=== PATIENT | female | born 1995 | race Caucasian/White ===

== ENCOUNTER 2017-01-16 09:23 | Inpatient (IN) ==
[2017-01-16] MEDS ORDERED: ONDANSETRON 4 MG/2 ML VIAL ONE (09:50)
[2017-01-16] MEDS ORDERED: MORPHINE 2 MG/1 ML SYRINGE ONE ×3 (09:50→10:41)
[2017-01-16] MEDS ORDERED: ONDANSETRON 4 MG/2 ML VIAL IV STA (09:55)
[2017-01-16] MEDS ORDERED: SODIUM CHLORIDE 0.9% 1,000 ML IV STA (09:55)
[2017-01-16] MEDS ORDERED: MORPHINE 2 MG/1 ML SYRINGE IV STA ×2 (09:55→10:34)
[2017-01-16 10:03] LABS: Basophils # 0.1 10*3/uL (0.0-0.2); Basophils % 0.6 % (0.0-0.8); Eosinophils # 0.1 10*3/uL (0.0-0.87); Eosinophils % 0.7 % (0.00-10.9); Hematocrit 34.6 VOL% (35.7-47.0); Hemoglobin 11.9 GM/DL (12.0-16.0); Immature Granulocytes % 0.4 %; Immature Granulocytes Absolute 0.04 #; Lymphocytes # 2.5 10*3/uL (1.4-4.0); Lymphocytes % 26.5 % (21.3-54.2); Mean Corpuscular HGB Conc 34.4 GM/DL (32-36); Mean Corpuscular Hemoglobin 27 PG (27-34); Mean Corpuscular Volume 78.5 FL (87-102); Mean Platelet Volume 9.7 FL (9.6-12.0); Monocytes # 0.5 10*3/uL (0.11-0.8); Monocytes % 5.2 % (1.7-12.7); Neutrophils # 6.2 10*3/uL (1.4-7.4); Neutrophils % 66.6 % (38.7-73.9); Platelet Count 300 T/CUMM (130-400); Red Blood Count 4.41 MC/CUMM (3.8-5.5); Red Cell Distribution Width 13.6 % (9.3-17.3); White Blood Count 9.4 T/CUMM (4-12)
[2017-01-16 10:40] LABS: Albumin 4.2 G/DL (3.4-5.0); Bilirubin,Total 0.8 MG/DL (0.2-1.0); Calcium 8.7 MG/DL (8.5-10.1); Total Protein 7.8 G/DL (6.4-8.3)
[2017-01-16 10:41] LABS: Osmolality,Calculated 275.7 MOS/KG (273-304); Potassium 3.6 MMOL/L (3.5-5.1)
--- NOTE | 2017-01-16 11:02 | Ultrasound Report ---
Exam: Ultrasound first trimester, transabdominal Clinical History: 21 years Female. Left lower quadrant pain Comparison: No relevant comparison images Technique: Real-time transabdominal obstetrical ultrasound maternal pelvis and a first trimester with image documentation Findings: Gestation: Single intrauterine gestation with visualized yolk sac. pole within an estimated age of 6 weeks 3 days heart rate is 117 bpm. Uterus/cervix: Unremarkable. No myometrial mass. Ovaries: Ovaries are within normal limits. No adnexal masses are appreciated Free fluid: There is no significant free fluid Impression: 1. Viable intrauterine gestation with estimated age of 6 weeks 3 days and expected delivery date of September 08, 2017 PROCEDURE INTERPRETED AT [facility] DEPARTMENT OF RADIOLOGY Final Report Signed by: Linda Keller MD
[2017-01-16 11:05] LABS: Apearance,Urine Slightly Hazy (Clear); Bilirubin,Urine Negative (Negative); Blood, Urine Large mg/dL (Negative); Glucose,Urine (UA) 50 mg/dL (Negative); Ketones,Urine Negative (Negative); Mucus,Urine Occasional /LPF (Occasional); Nitrite,Urine Negative (Negative); Protein,Urine Negative; RBC,Urine 858 /HPF (0-4); Squamous Epithelial Cell,Urine Occasional /HPF (0-10); Urine Color Yellow (Yellow); Urine Specific Gravity 1.021 (1.001-1.035); Urine Urobilinogen < 2.0 EU/DL (0.2-1.0); WBC,Urine 1 /HPF (0-6)
[2017-01-16] MEDS ORDERED: HYDROmorphone 2 MG/1 ML VIAL IV STA ×2 (11:31→13:23)
[2017-01-16] MEDS ORDERED: HYDROmorphone 2 MG/1 ML VIAL ONE (11:50)
--- NOTE | 2017-01-16 12:31 | Emergency Department Note ---
Megan Boone Mantricia, am scribing for, and in the presence of, Austin Garnett Jr., MD 09:45. Tamir Boone Marvin Jr., MD, personally performed the services described in this documentation, ascribed by Debbie Guzman in my presence, and it is both accurate and complete 958 . Arrival - Arrival Chief Complaint: Nausea/Vomiting/Diarrhea Stated Complaint: 7 weeks /severe pain ED Nursing Triage Note: pt ambulatory to triage with c/o having n/v with abd pain onset this am around 0730. pt last menstral cycle 11/27/2016. pt is estimated at 8wks gestation. pt has not been to obgyn yet for confirmation. Mode of Arrival: Wheelchair Limitations: No Limitations Source: Patient - History of Present Illness HPI Narrative: Pt is a 21 y/o white female arriving to ED via wheelchair with c/o N/V and left sided abdominal pain that onset 0730 this morning. Pt states that she is about 7 weeks with a LNMP of 11/27/16. She describes the pain as severe, constant, and excruciating that seems to be getting worse. Pt denies vaginal bleeding and reports that she has been spitting up flem. She denies taking any pain medications due to not being able to keep anything down. Pt denies following up with an OBGYN yet. At time if exam, pt's heart rate is 114. No other complaints were reported to ED. Onset (ago): hour(s) Consistency: constant Severity: severe Date of Last Menstrual Period: 11/27/2016 Allergies/Adverse Reactions: Allergies Allergy/AdvReac Type Severity Reaction Status Date / Time Pertussis Vaccines Allergy ANAPHYLAXIS Verified 01/16/17 09:36 Home Medications: Home Medications Medication Instructions Recorded Confirmed Type Pnv No.95/Ferrous Fum/Folic AC 1 each PO DAILY 01/16/17 01/16/17 History [ Tablet] Review of System - Review of System 12 point system: reviewed and no additional remarkable complaints except as stated - Review of System Constitutional: Absent: chills, diaphoresis, fever Respiratory: Absent: cough Cardiovascular: Absent: chest pain Gastrointestinal: Present: abdominal pain, nausea, vomiting. Absent: diarrhea Musculoskeletal: Absent: arm pain, back pain, leg pain, neck pain Medical,Surgical,& Family Hx - Social History Smoking Status: Never smoker Frequency of Alcohol Use: None Type of Drug Use: None Exam Physical Examination: General: Well-developed well-nourished, severe distress, very anxious, cannot be still, prefers to sit up and hold the pillow to her abdomen Head: Normocephalic, atraumatic. Eyes: PERRLA, EOMI. Nose: No obvious acute deformities or discharge. Mouth: No obvious acute injury. Neck: Full range of motion without obvious pain. No midline tender to palpation. Lymphatic: no significant lymphadenopathy noted. Lungs: Clear to auscultation bilaterally, normal and equal air movement bilaterally, no obvious rales or wheezing. Heart: Tachycardic Abdomen: Some left suprapubic tenderness but most is on the left side of her abdomen, left lower quadrant Skin: No obivous acute lesions noted , diaphoretic Musculoskeletal: No gross deformities. Neurological: No focal findings, cranial nerves II through XII grossly normal. Psychiatric: Anxious : Deferred Vital Signs: Vital Signs Temperature 97.6 F 01/16/17 09:50 Pulse Rate 126 H 01/16/17 09:50 Respiratory Rate 20 01/16/17 09:50 Blood Pressure 109/70 01/16/17 09:50 O2 Sat by Pulse Oximetry 98 01/16/17 09:33 Course Course Narrative: Differential diagnosis, ectopic , kidney stone, pyelonephritis, ovarian torsion - Reevaluation(s) Reevaluation #1: Patient said her nausea is better but her abdominal pain has not changed. Nurse reports the tech told her the baby appears to be normal. IUP. Report pending, if this is a case kidney stone must be high on the list as well as severe pyelonephritis Time: 10:35 Reevaluation #2: Patient still in considerable pain. External vaginal exam performed and appears to be normal. No blood. Digital exam was performed in office is closed. No right adnexal or uterine tender to palpation. No blood. Left adnexa and left side pain. Very tender to palpation. Significant amount of blood in her cath urine specimen. Only 1 white cell seen, this is consistent with a kidney stone without infection, this would fit her picture since she has a strong family of kidney stones. Except that she is tender to palpation which is slightly unusual. I am hesitant about doing a CT to prove this and patient and family agree. Time: 11:29 Reevaluation #3: Patient has received 8 mg of morphine and 1 mg of Dilaudid and is still hurting. She says her pain is better but still severe. She still does not want CT of her abdomen looking for a kidney stone. I will discuss with the hospitalist to admit for pain control and further workup. Time: 12:22 Results - Labs CBC & BMP: 01/16/17 09:51 01/16/17 09:51 Lab Results: I have reviewed the patients labs Labs: Laboratory Tests 01/16/17 01/16/17 01/16/17 09:51 09:51 09:51 Hgb 11.9 L Hct 34.6 L MCV 78.5 L Glucose 129 H Globulin 3.6 H HCG Beta Subunit 69135.0 H Laboratory Tests 01/16/17 09:51 Urine Urobilinogen < 2.0 H - Diagnostic Findings Procedure: Ultrasound: report reviewed by me, image reviewed by me (Transvaginal : 1. Viable intrauterine gestation with estimated age of 6 weeks 3 days and expected delivery date of September 08, 2017. ) Disposition Clinical Impression: Acute onset left abdominal pain, Early stage of , Vomiting Case discussed with: patient, patient's family Disposition: Still a Patient Condition: Stable Time of Disposition: 12:31
[2017-01-16] MEDS ORDERED: ACETAMINOPHEN 325 MG TABLET PO PRN ×2 (13:04)
[2017-01-16] MEDS ORDERED: oxyCODONE/ACETAMINOPHEN 5-325 MG TABLET PO PRN ×2 (13:04)
[2017-01-16] MEDS ORDERED: HYDROmorphone 2 MG/1 ML VIAL IV PRN ×2 (13:04)
[2017-01-16] MEDS ORDERED: ONDANSETRON 4 MG/2 ML VIAL IV PRN ×2 (13:04)
--- NOTE | 2017-01-16 13:19 | Hospitalist History & Physical ---
<Ni Norwood - Last Filed: 01/16/17 13:14> Assessment and Plan - Time spent with patient Time spent with patient: Greater than 30 minutes (1) Intractable left upper quadrant abdominal pain Status: Acute Assessment and plan: 21-year-old white female that is 6 weeks admitted by the hospitalist service with intractable left upper quadrant and flank abdominal pain. Patient does have blood in the urine and has not been able to urinate this morning. Renal ultrasound is pending. Patient will be put on the floor with pain and nausea control that will protect the fetus. Patient most likely has kidney stones and this will need to pass. Will try to make her comfortable until this does so. Await results of renal ultrasound to see if this is obstructing. Will need urology if that is the case. Dr. Teresa will see and examine patient and further recommendations to follow. Current Visit: Yes (2) Nausea Status: Acute Current Visit: Yes (3) Early stage of Status: Acute Current Visit: Yes History of Present Illness Chief complaint: Abdominal pain History of present illness: Ms. Bell is a 21 year old female with no reported medical history presenting to the ED with acute onset of left-sided severe abdominal pain this morning. It is associated with nausea and vomiting. Patient states she found out a few weeks ago she is 6 weeks . She has not seen an OB doctor yet but they are located in [place]. She is taking vitamins. She states she was in her normal state of health until this morning when she developed severe onset of acute left-sided abdominal pain that shoots through to the back. She states she has been severely nauseated and has vomited multiple times. She was given Zofran in the ED and this has helped the nausea. She has also be given morphine and Dilaudid for pain and this does not seem to be helping. She cannot get comfortable and she cannot take a deep breath. She is afebrile but she is tachycardic at 126 and blood pressure stable. Her CBC and BMP are relatively normal. Her UA is showing a large amount of blood in the urine. Upon exam patient is moderately uncomfortable due to pain and she is tender to palpation on the left upper and lower quadrants and around to her left flank. She does have positive CVA tenderness. Otherwise her exam is unremarkable. Transvaginal ultrasound shows a viable intrauterine gestation with an estimated age of 6 weeks and 3 days. Ovaries are normal with no masses, no free fluid. Renal ultrasound is pending. After discussion with Dr. Garnett the ED physician and Dr. Teresa the admitting hospitalist, it was agreed patient would be admitted for further evaluation and treatment. Patient's home medicines have been reconciled and she is a full code. Home Medications Medication Instructions Recorded Confirmed Type Pnv No.95/Ferrous Fum/Folic AC 1 each PO DAILY 01/16/17 01/16/17 History [ Tablet] Allergies Allergy/AdvReac Type Severity Reaction Status Date / Time Pertussis Vaccines Allergy ANAPHYLAXIS Verified 01/16/17 09:36 Medical,Surgical,& Family Hx - Medical History Cardio: No history of: Hypertension Endocrine: No history of: Diabetes Mellitus (NIDDM) - Surgical History Abdominal Surgeries: Patient denies: Abdominal Surgery - Family History Family History: Reports;: Family Heart Disease - Social History Smoking Status: Never smoker Frequency of Alcohol Use: None Type of Drug Use: None Marital Status: Single Lives With:: Alone Functional capacity: independent ambulation 12 point system: reviewed and no additional remarkable complaints except as stated Exam - Constitutional Vitals: Period Temp Pulse Resp BP Sys/Skinner Pulse Ox Last 24 Hr 97.6 F-97.6 F 126-126 20-20 109-109/70-70 98 Exam: Constitutional System: Mild distress due to pain. No tremulousness. Head: Normocephalic, atraumatic. Ears, Nose and Throat System: No evidence of Otitis or Mastoiditis. No epistaxis or discharge Eyes System: Pupils equal, round, and reactive. Extraocular muscles intact. Neck: Supple, without adenopathy, No jugular venous distention. No thyromegaly, neck mass, or prior surgery apparent. Respiratory System: Chest clear to auscultation. Cardiovascular System: Heart with tachycardic rate and regular rhythm. No murmur. GI System: Abdomen soft, moderately tender in left upper and lower quadrant and around to the flank. positive CVA tenderness. Normo active bowel sounds present. Musculoskeletal System: limbs with no pedal edema. Full distal pulses. Neurological System: No discernable sensory deficit. No aphasia Psychiatric System: Conversation is rational Results - Labs CBC & BMP: 01/16/17 09:51 01/16/17 09:51 Lab Results: I have reviewed the past 24 hour labs Quality Measures - VTE Contraindication to Pharmacological VTE Prophylaxis: Clinical assessment deems Pt at low risk, no prophalaxis needed <Martha Teresa - Last Filed: 01/16/17 15:18> History of Present Illness History of present illness: Ms. Bell is a 21 year old female who is 6weeks now presents with left sided pain, nausea and vomiting but no fever. She was also tachycardic in the 120s.Transvaginal ultrasound shows a viable intrauterine gestation with an estimated age of 6 weeks and 3 day. Renal USS showed no stones. A/P 1. Left sided pain, nausea and vomting : ? hyperemesis gravidarum vs passed stones Plan OBGYN stat consult Cautiously give anti emetics and pain meds- OBGYN to advise Blood cultures PPIs IVF Exam - Constitutional Vitals: Period Temp Pulse Resp BP Sys/Skinner Pulse Ox Last 24 Hr 97.6 F-97.8 F 106-126 18-20 109-115/70-72 98-99 Results - Labs CBC & BMP: 01/16/17 09:51 01/16/17 09:51
[2017-01-16] MEDS ORDERED: SODIUM CHLORIDE 0.9% 1,000 ML IV SCH (13:30)
--- NOTE | 2017-01-16 13:51 | Ultrasound Report ---
US renal Bilateral Indication: Left flank pain and hematuria. Comparison: Not available. Technique: Multiple longitudinal and transverse real-time sonographic images of the kidneys were obtained. Findings: The right kidney measures 10.4 x 3.5 x 4.7 cm, and the left kidney measures 12.2 x 5.7 x 5.5 cm. There is no evidence of nephrolithiasis or abnormal perinephric fluid collections. Renal cortical echogenicity and thickness are within normal limits. There is no hydronephrosis. There is no evidence of surrounding ascites. Ultrasound images were captured and stored. IMPRESSION: Unremarkable renal ultrasound. PROCEDURE INTERPRETED AT [facility] DEPARTMENT OF RADIOLOGY Final Report Signed by: Linda Keller MD
[2017-01-16] MEDS ORDERED: ACETAMINOPHEN/CODEINE 300-30 MG TABLET PO PRN ×2 (16:06)
[2017-01-16] MEDS: DEXTROSE 5% LACTATED RINGERS 1,000 ML IV SCH (16:23)
[2017-01-16] MEDS: MULTIVITAMIN (PRENATAL) TABLET PO SCH (16:24)
[2017-01-16] MEDS: AMPICILLIN INJ 2,000 MG in SODIUM CHLORIDE 0.9% 50 ML IV SCH ×2 (16:35→21:55)
[2017-01-16] MEDS: PANTOPRAZOLE 40 MG TABLET PO SCH (16:36)
[2017-01-16 17:03] LABS: Barbiturates Screen,Urine Negative (Negative); Benzodiazepines Screen,Urine Negative (Negative); Cannabinoid Screen,Urine Negative (Negative); Opiate Screen,Urine Positive (Negative); Phencyclidine Screen,Urine Negative (Negative)
[2017-01-16 17:19] LABS: Apearance,Urine CLEAR (Clear); Bacteria,Urine Occasional /HPF (Few); Bilirubin,Urine Negative (Negative); Blood, Urine Large mg/dL (Negative); Glucose,Urine (UA) Negative (Negative); Ketones,Urine 5 mg/dL (Negative); Mucus,Urine Occasional /LPF (Occasional); Nitrite,Urine Negative (Negative); Protein,Urine Negative; RBC,Urine 46 /HPF (0-4); Squamous Epithelial Cell,Urine Occasional /HPF (0-10); Urine Color Yellow (Yellow); Urine Specific Gravity 1.006 (1.001-1.035); Urine Urobilinogen < 2.0 EU/DL (0.2-1.0); WBC,Urine 1 /HPF (0-6)
[2017-01-17] MEDS: DEXTROSE 5% LACTATED RINGERS 1,000 ML IV SCH (00:15)
[2017-01-17] MEDS: AMPICILLIN INJ 2,000 MG in SODIUM CHLORIDE 0.9% 50 ML IV SCH (04:02)
[2017-01-17 06:09] LABS: Basophils # 0.1 10*3/uL (0.0-0.2); Basophils % 0.5 % (0.0-0.8); Eosinophils # 0.1 10*3/uL (0.0-0.87); Eosinophils % 0.5 % (0.00-10.9); Hematocrit 28.6 VOL% (35.7-47.0); Hemoglobin 9.6 GM/DL (12.0-16.0); Immature Granulocytes % 0.3 %; Immature Granulocytes Absolute 0.03 #; Lymphocytes # 2.8 10*3/uL (1.4-4.0); Lymphocytes % 26.9 % (21.3-54.2); Mean Corpuscular HGB Conc 33.6 GM/DL (32-36); Mean Corpuscular Hemoglobin 27 PG (27-34); Mean Corpuscular Volume 79.9 FL (87-102); Monocytes # 0.6 10*3/uL (0.11-0.8); Monocytes % 6.1 % (1.7-12.7); Neutrophils # 6.9 10*3/uL (1.4-7.4); Neutrophils % 65.7 % (38.7-73.9); Platelet Count 231 T/CUMM (130-400); Red Blood Count 3.58 MC/CUMM (3.8-5.5); Red Cell Distribution Width 13.9 % (9.3-17.3); White Blood Count 10.4 T/CUMM (4-12)
[2017-01-17 06:31] LABS: Calcium 8.2 MG/DL (8.5-10.1); Magnesium 2.1 MG/DL (1.8-2.4); Osmolality,Calculated 275.4 MOS/KG (273-304); Potassium 4.1 MMOL/L (3.5-5.1)
[2017-01-17 08:24] VITALS: BP 96/53
[2017-01-17] MEDS: PANTOPRAZOLE 40 MG TABLET PO SCH (09:44)
[2017-01-17] MEDS: MULTIVITAMIN (PRENATAL) TABLET PO SCH (09:44)
--- NOTE | 2017-01-17 10:28 | Discharge Summary ---
<Ni Norwood - Last Filed: 01/17/17 10:25> Hospital Course - Hospital Course Hospital Course: 21-year-old white female with history of 6 week admitted by the hospitalist service with severe intractable left-sided abdominal and flank pain. Patient's transvaginal and renal ultrasound were all normal with no signs of stones. She did have blood in her urine with no signs of infection. Patient received some antibiotics and pain control. Dr. Pleitez from OB was consulted. Overnight patient's pain has subsided and now she is just mildly sore on that left flank. She is afebrile and her vital signs are stable. She is nontender to exam. She has tolerated a regular diet this morning. Most likely patient had a renal stone that has passed. Discussed the case with Dr. Pleitez and he is in agreement for discharge. Patient will need to follow-up with her OB doctor in [place] in the next 1-2 weeks. Complete discharge instructions were given to the patient and her parents in the room. Care coordination, chart review, and completed discharge paperwork took approximately 35 minutes. - Time spent with patient Time with patient DS: Greater than 30 minutes Diagnosis - Discharge Diagnosis (1) Intractable left upper quadrant abdominal pain Status: Resolved (2) Nausea Status: Resolved (3) Early stage of Status: Chronic Specialty Discharge - Follow Up or Referrals Follow up with: Your, [facility] [Other] - 2 Weeks Discharge Plan - Discharge Data Disposition: Left Against Medical Advice Discharge Diet: advance to your usual diet Activity: resume usual activities as tolerated Driving: no restrictions Contact your physician if you experience:: Bleeding, pain uncontrolled by pain medications - Discharge Medications Continue Pnv No.95/Ferrous Fum/Folic AC [ Tablet] 1 each PO DAILY - Follow Up or Referral Follow Up: Your, [facility] [Other] - 2 Weeks - Forms/Instructions Instructions: (DC), Kidney Stones (DC) Exam - Constitutional Vitals: Period Temp Pulse Resp BP Sys/Skinner Pulse Ox Last 24 Hr 97.4 F-99.8 F 93-119 16-20 92-116/50-72 96-100 Exam: 21-year-old white female, no acute distress, alert and oriented Chest clear CV regular rate and rhythm Abdomen soft and nontender Extremities no edema Discharge Results Procedures and tests throughout hospitalization: Pending Orders 01/16/17 15:03 Blood Culture Routine Labs on day of discharge: Labs from last 24 hours 01/17/17 01/17/17 01/16/17 05:46 05:46 16:30 WBC 10.4 RBC 3.58 L Hgb 9.6 L D Hct 28.6 L MCV 79.9 L MCH 27 MCHC 33.6 RDW 13.9 Plt Count 231 D MPV 10.0 Neut % (Auto) 65.7 Lymph % (Auto) 26.9 Grimes % (Auto) 6.1 Eos % (Auto) 0.5 Baso % (Auto) 0.5 Neut # (Auto) 6.9 Lymph # (Auto) 2.8 Grimes # (Auto) 0.6 Eos # (Auto) 0.1 Baso # (Auto) 0.1 Immature Gran % 0.3 Nucleated RBC % 0.0 Immature Gran # 0.03 Nucleated RBCs # 0.00 Immature Plt Fraction 0.0 Sodium 140 Potassium 4.1 Chloride 109 H Carbon Dioxide 25 Anion Gap 10.1 BUN 6 L Creatinine 0.50 L GFR Calculation 127 BUN/Creatinine Ratio 12.00 Glucose 87 Calculated Osmolality 275.4 Calcium 8.2 L Magnesium 2.1 Total Bilirubin AST ALT Alkaline Phosphatase Total Protein Albumin Globulin Albumin/Globulin Ratio HCG Beta Subunit Urine Color Urine Appearance Urine pH Ur Specific Confluence Urine Protein Urine Glucose (UA) Urine Ketones Urine Blood Urine Nitrate Urine Bilirubin Urine Urobilinogen Urine Leukocytes Urine RBC Urine WBC Ur Squamous Epith Cells Urine Bacteria Urine Mucus Ur Culture Indicated? Urine Opiates Screen Positive H Ur Barbiturates Screen Negative Ur Phencyclidine Scrn Negative U Amphetamine/Methamph Negative U Benzodiazepines Scrn Negative U Cocaine Metab Screen Negative U Cannabinoids Screen Negative 01/16/17 01/16/17 01/16/17 16:30 09:51 09:51 WBC RBC Hgb Hct MCV MCH MCHC RDW Plt Count MPV Neut % (Auto) Lymph % (Auto) Grimes % (Auto) Eos % (Auto) Baso % (Auto) Neut # (Auto) Lymph # (Auto) Grimes # (Auto) Eos # (Auto) Baso # (Auto) Immature Gran % Nucleated RBC % Immature Gran # Nucleated RBCs # Immature Plt Fraction Sodium Potassium Chloride Carbon Dioxide Anion Gap BUN Creatinine GFR Calculation BUN/Creatinine Ratio Glucose Calculated Osmolality Calcium Magnesium Total Bilirubin AST ALT Alkaline Phosphatase Total Protein Albumin Globulin Albumin/Globulin Ratio HCG Beta Subunit 77762.0 H Urine Color Yellow Yellow Urine Appearance Clear Slightly hazy Urine pH 6.0 5.0 Ur Specific Confluence 1.006 1.021 Urine Protein Negative Negative Urine Glucose (UA) Negative 50 Urine Ketones 5 Negative Urine Blood Large Large Urine Nitrate Negative Negative Urine Bilirubin Negative Negative Urine Urobilinogen < 2.0 H < 2.0 H Urine Leukocytes Negative Negative Urine RBC 46 858 Urine WBC 1 1 Ur Squamous Epith Cells Occasional Occasional Urine Bacteria Occasional Urine Mucus Occasional Occasional Ur Culture Indicated? Not indicated Not indicated Urine Opiates Screen Ur Barbiturates Screen Ur Phencyclidine Scrn U Amphetamine/Methamph U Benzodiazepines Scrn U Cocaine Metab Screen U Cannabinoids Screen 01/16/17 09:51 WBC RBC Hgb Hct MCV MCH MCHC RDW Plt Count MPV Neut % (Auto) Lymph % (Auto) Grimes % (Auto) Eos % (Auto) Baso % (Auto) Neut # (Auto) Lymph # (Auto) Grimes # (Auto) Eos # (Auto) Baso # (Auto) Immature Gran % Nucleated RBC % Immature Gran # Nucleated RBCs # Immature Plt Fraction Sodium 138 Potassium 3.6 Chloride 107 Carbon Dioxide 21 Anion Gap 13.6 BUN 10 Creatinine 0.70 GFR Calculation 110 BUN/Creatinine Ratio 14.00 Glucose 129 H Calculated Osmolality 275.7 Calcium 8.7 Magnesium Total Bilirubin 0.80 AST 21 ALT 25 Alkaline Phosphatase 46 Total Protein 7.8 Albumin 4.2 Globulin 3.6 H Albumin/Globulin Ratio 1.1 HCG Beta Subunit Urine Color Urine Appearance Urine pH Ur Specific Confluence Urine Protein Urine Glucose (UA) Urine Ketones Urine Blood Urine Nitrate Urine Bilirubin Urine Urobilinogen Urine Leukocytes Urine RBC Urine WBC Ur Squamous Epith Cells Urine Bacteria Urine Mucus Ur Culture Indicated? Urine Opiates Screen Ur Barbiturates Screen Ur Phencyclidine Scrn U Amphetamine/Methamph U Benzodiazepines Scrn U Cocaine Metab Screen U Cannabinoids Screen DS: Provider Date of admission: 01/16/17 12:33 Primary care physician: . No PCP Attending physician on admission: Martha Teresa MD Consults: 01/16/17 15:10 Consult to Physician [CONS] Routine Comment: severe abd pain, 6 weeks pregnanat Consulting Provider: Gladys Pleitez Person Notified: Dr Pleitez Date Notified: 01/16/17 Time Notified: 15:05 Discharging clinician: ALLA Gilmore Expected date of discharge: 01/17/17 <Martha Teresa - Last Filed: 01/17/17 10:50> Diagnosis - Discharge Diagnosis (1) Vomiting Status: Acute (2) Intractable left upper quadrant abdominal pain Status: Resolved (3) Nausea Status: Resolved Exam - Constitutional General appearance: no acute distress - Head Head exam: Present: normal inspection - Respiratory Respiratory exam: Present: clear to auscultation bilaterally - Cardiovascular Cardiovascular exam: Present: regular rate and rhythm - GI/Abdominal GI/Abdominal exam: Present: normal bowel sounds - Extremities Exam Extremities exam: Present: normal inspection - Neurological Exam Neurological exam: Present: alert, oriented X3
== END 2017-01-17 10:50 | disposition home or self-care (01) | DRG 781 ==
LOC: N.ED 09:23 → N.EDINP 12:33 → N.5E 13:36 → N.OB 15:40
PROVIDERS: ADMIT Internal Medicine; ATTEND Internal Medicine